=== PATIENT | male | born 1990 | race Caucasian/White ===

== ENCOUNTER 2016-08-15 18:16 | Emergency (ER) | payer MEDICAID ==
[2016-08-15 18:31] VITALS: BP 153/81
--- NOTE | 2016-08-15 19:16 | ERNOTE ---
ENT HPI Date of Service: 08/15/16 Presenting Symptoms: dental pain Time Seen by Provider: 08/15/16 19:00 Source: patient, RN notes reviewed Exam Limitations: no limitations - Immun/Allergies/Home Medications Immunizations: IMMUNIZATION HX Immunizations Up to Date Yes History of Influenza Vaccine No Hx Pneumococcal Vaccination No Allergies/Adverse Reactions: Allergies Allergy/AdvReac Type Severity Reaction Status Date / Time No Known Allergies Allergy Unverified 09/30/15 18:49 Home Medications: HOME MEDICATIONS NK [No Home Medication] 08/15/16 [Last Taken Unknown] - History of Present Illness Narrative: 26 y/o male ambulatory to ED for pain d/t a broken tooth. A filling came out of the tooth 6 weeks ago. He attempted to see a dentist but was turned away d/t having Medicaid. He denies any fevers. He has been taking ibuprofen and using a temporary filling. He is going out of town and wanted to make sure he did not need to be on an antibiotic before he left. ENT Location: Present: dental Prearrival Treatment: Present: over the counter meds Associated Symptoms - ENT: Reports: tooth pain. Denies: fever, malaise, poor fluid intake, poor solid intake, facial pain/swelling, jaw swelling Prior Treament: Denies: recently seen Review of Systems - Review of Systems Constitutional: Present: See HPI EYE: Present: no symptoms reported ENT: Present: See HPI Respiratory: Present: no symptoms reported Cardiology: Present: no symptoms reported Gastrointestinal/Abdominal: Absent: nausea, vomiting, abdominal pain Genitourinary: Present: no symptoms reported Musculoskeletal: Absent: muscle pain, neck pain Skin: Absent: rash, lesions, lumps Neurological: Absent: headache, dizziness/light-headedness Endocrine: Present: no symptoms reported Hematologic/Lymphatic: Present: no symptoms reported Psych: Present: no symptoms reported - Patient's Past Medical History Patient History - Medical: No pertinent hx Patient History - Cardiac/Respiratory: No pertinent hx Patient History - Cancer: No Hx of Cancer Patient History - Surgical Procedures: No surgical history Patient History - Other: None - Family History mom Family History - Medical: No pertinent hx dad Family History - Medical: No pertinent hx - Social History Living Situations: home Abuse History: No History of abuse Psych History: No pertinent hx Smoking Status: Current every day smoker Have you smoked in the past 12 months: Yes Do you dip or chew tobacco: No Alcohol Use: none Drug Use: none - Immunizations Immunizations Up to Date: Yes Hx Pneumococcal Vaccination: No History of Influenza Vaccine: No Physical Exam - Physical Exam General Appearance: Present: wd/wn, alert, no apparent distress Eye Exam: Normal inspection: bilateral Ears, Nose, Throat: Present: hearing grossly normal, normal pharynx, other - left upper molar with missing filling, no surrounding gingival inflammation or signs of abscess, no facial swelling or tenderness Neck: Present: normal inspection, nontender, supple. Absent: lymphadenopathy (R ), lymphadenopathy (L) Respiratory: Present: no respiratory distress, normal breath sounds, no accessory muscle use, lungs clear Cardiovascular/Chest: Present: regular rate, rhythm, no murmur Neurological Exam: Present: alert, oriented, normal mood/affect, no motor/ sensory deficits Skin Exam: Present: normal color, warm/dry ED Progress - Vital Signs Patient's Vital Signs:: I have reviewed the patient's vital signs. Vital Signs: Vital Signs 08/15/16 18:25 Temperature 36.9 C Pulse Rate 107 H Respiratory 18 Rate Blood Pressure 153/81 - Progress/Reassessment Chief Complaint: Dental Problem Progress:: Unchanged Plan - Plan Plan: Discussed with patient that he is unlikely to develop an abscess at this point as his filling came out over a month ago. Discussed need to see a dentist. Departure Clinical Impression: Broken tooth Qualifiers: Encounter type: initial encounter Fracture type: open Qualified Code(s): S02.5XXB - Fracture of tooth (traumatic), initial encounter for open fracture - Departure Disposition: Home Follow Up Needed Condition: Good Instructions: Dental Caries Additional Instructions: Good oral hygiene - brush at least twice a day and use a fluoride mouth wash Temporary filling Ibuprofen 600 mg every 6 hours as needed for pain - take with food See a dentist [facility] Referrals: Joseline Bojorquez, [employer] [Primary Care Provider] -
== END 2016-08-15 19:21 | disposition home or self-care (01) ==
LOC: ER 18:16
DX: S02.5XXB Fracture of tooth (traumatic), initial encounter for open fracture (principal); F17.210 Nicotine dependence, cigarettes, uncomplicated

== ENCOUNTER 2017-02-05 17:23 | Emergency (ER) | payer BC, MEDICAID ==
[2017-02-05 17:30] VITALS: BP 137/90
--- OUTSIDE RECORDS SUMMARY | 2017-02-05 17:44 | XMS REPORT | Clinical Summary ---
:1990 Author Organization [facility] [place] [address] Care Team Providers Name Role Phone Unavailable Primary Care Provider Unavailable Source Comments This disclosure is being made pursuant to the AA Party program and maynot contain all information available regarding this patient.[facility] Allergies Not on File Current Medications Be aware that medications may not be up to date as of this document. Alwaysverify current medications with the patient. Not on file Active Problems Not on file Social History Tobacco Use Types Packs/Day Years Used Date Never Assessed Sex Assigned at Date Recorded Not on file Last Filed Vital Signs Not on file Plan of Treatment Health Maintenance Due Date Last Done Comments Retired-Pertussis Vaccine Adult 2007 Retired-Tetanus Vaccine Adult 2007 Retired-INFLUENZA VACCINE 03/14/2015 Results Not on filefrom Last 3 Months
--- NOTE | 2017-02-05 18:47 | ERNOTE ---
Upper Extremity HPI - Narrative Date of Service: 02/05/17 - General Extremities Pain Location: hand: right Time Seen by Provider: 02/05/17 17:38 Source: patient Exam Limitations: no limitations - Immun/Allergies/Home Medications Immunizations: IMMUNIZATION HX Immunizations Up to Date Yes History of Influenza Vaccine No Hx Pneumococcal Vaccination No Allergies/Adverse Reactions: Allergies Allergy/AdvReac Type Severity Reaction Status Date / Time No Known Allergies Allergy Verified 02/05/17 17:30 Home Medications: HOME MEDICATIONS HYDROcodone/ACETAMINOPHEN [[facility] 5-325] 1 each PO Q8H PRN #15 tablet 02/05/17 [ Last Taken Unknown] - History of Present Illness Narrative: Patient presents to the ED for right hand pain. he relates he fell forward and "punched the ground". This was one hour ago. He had immediate pain right 5th knuckle area. No other injuries. No head injury, no neck pain. No focal N/T/ W. No wrist, elbow or shoulder pain. has not seen anyone else or this. Pain is severe. Worse with movement and palpation. Denies other injuries. Occurred: just prior to arrival Method of Injury: Reports: direct blow Reason for Fall: Reports: tripped Loss of Consciousness: Reports: no loss of consciousness Modifying Factors - (Improves): Reports: rest Modifying Factors - (Worsens): Reports: movement Associated Symptoms: Denies: tingling, weakness, numbness distally, loss of feeling Other Injuries: Reports: none Prior Treament: Denies: recently seen Review of Systems - Review of Systems Constitutional: Absent: fever Respiratory: Absent: shortness of breath Cardiology: Absent: chest pain Gastrointestinal/Abdominal: Absent: abdominal pain - Patient's Past Medical History Patient History - Medical: Other Patient History - Cardiac/Respiratory: Other Patient History - Cancer: No Hx of Cancer Patient History - Surgical Procedures: No surgical history Patient History - Other: None - Family History mom Family History - Medical: No pertinent hx dad Family History - Medical: No pertinent hx - Social History Living Situations: home Abuse History: No History of abuse Psych History: No pertinent hx Alcohol Use: none Drug Use: none - Immunizations Immunizations Up to Date: Yes Hx Pneumococcal Vaccination: No History of Influenza Vaccine: No Physical Exam - Physical Exam General Appearance: Present: alert, no apparent distress Head Exam: Present: normal inspection, no evidence of injury Eye Exam: Normal inspection: bilateral, PERRL: bilateral Ears, Nose, Throat: Present: normal ENT inspection Neck: Present: normal inspection, nontender Respiratory: Present: no respiratory distress Cardiovascular/Chest: Present: regular rate, rhythm, normal peripheral pulses, other - strong radial pulses Gastrointestinal/Abdominal: Present: normal bowel sounds, nontender Back Exam: Present: normal inspection, normal range of motion, no vertebral tenderness Extremity Exam: Present: other - Tenderness 5th metacarpal with mild swelling. No laceration. No other tendenress. Pain limits exam but no clear tendon deficits. No open fracture. No other bone tenderness. Neurological Exam: Present: alert, normal mood/affect, no motor/sensory deficits , other - Pain limits exam somewhat, no clear acute focal motor or sensory deficits. Skin Exam: Present: normal color, warm/dry, other - no lopen fracture ED Progress - Vital Signs Patient's Vital Signs:: I have reviewed the patient's vital signs. Vital Signs: Vital Signs 02/05/17 17:27 Temperature 37.2 C Pulse Rate 117 H Respiratory 19 Rate Blood Pressure 137/90 O2 Sat by Pulse 99 Oximetry - X-Ray X-Ray #1 X-Ray: hand Interpretation: Interp. by me X-ray Comments: No real-time radiology reading. angulated 5th metacarpal fracture. No dislocation seen - Progress/Reassessment Chief Complaint: Upper Extremity Injury/Problem Progress Note-Subjective: 02/05/17 18:45 D/W Dr Benavides via phone, will see in the office. Nursing placed metacarpal splint here as is the protocol at this hospital. I stressed to the patient that this is only temporary and he needed to be seen by the orthopedist [facility] and to call back here if he had any difficulty with scheduling this. i discussed warning signs and reasons to return as well as the need for close f/u. Departure Clinical Impression: Closed fracture of 5th metacarpal - Departure Disposition: Home self-care Condition: Stable Instructions: Boxer's Fracture Additional Instructions: Rest. Ice. No driving with pain medications. Call Dr Benavides in the morning to schedule an appointment, I spoke with him over the phone. Return here for increased pain, numbness, tingling, weakness or if your condition worsens or changes in any way. Referrals: Joseline Bojorquez, [employer]HY [employer]INTS CURATOR [Primary Care Provider] - Prescriptions: HYDROcodone/ACETAMINOPHEN [[facility] 5-325] 1 each PO Q8H PRN #15 tablet PRN Reason: Pain
== END 2017-02-05 18:54 | disposition home or self-care (01) ==
LOC: ER 17:23
PROC: 2W3EX1Z Immobilization of Right Hand using Splint (ICD-10-PCS; principal; 2017-02-05)
DX: S62.306A Unspecified fracture of fifth metacarpal bone, right hand, initial encounter for closed fracture (principal); W01.198A Fall on same level from slipping, tripping and stumbling with subsequent striking against other object, initial encounter